=== PATIENT | female | born 1975 | race Two or more races ===

== ENCOUNTER 2021-12-23 11:30 | Outpatient (CLI) | payer MEDICARE, OTHER | END 2021-12-23 23:59 | disposition home or self-care (01) | LOC: LAB 11:30 | PROVIDERS: ATTEND Surgery | DX: Z01.812 Encounter for preprocedural laboratory examination (principal); Z20.822 Contact with and (suspected) exposure to COVID-19 | CPT/HCPCS: U0003; C9803 ==

== ENCOUNTER 2021-12-29 11:01 | Inpatient (IN) | payer MEDICARE, OTHER ==
[2021-12-29] VITALS (9 sets, daily range): BP systolic 106–144; BP diastolic 53–85
[~2021-12-29] VITALS: Ht 154.9 cm; Wt 98.4 kg
[~2021-12-29 11:01] MED LIST: ANESTHESIA TRAY IN PYXIS 1 EA TRAY MC ONE; BUPIVACAINE 0.25% 75 MG/30 ML VIAL ONE; LIDOCAINE MPF 1%-EPI 1:200,000 30 ML VIAL IJ ONE
--- NOTE | 2021-12-29 11:43 | NUR ---
MS RN ADMITTING NOTES PT ADMITTED TO UNIT AT 1125 AMBULATORY ACCOMPANIED BY ADMITTING STAFF. PT IS A/O X4. ABLE TO MAKE NEEDS KNOWN. ORIENTED TO STAFF AND UNIT. PT ON ROOM AIR, BREATHING EVEN AND UNLABORED. V/S TAKEN AND RECORDED. CONSENTS FOR GASTRECTOMY BY GABINO ZAMBRANO SIGNED BY PT. IV ACCESS INSERTED TO RFA G#22 AND SECURED WITH TAPE. URINE SPECIMEN FOR HCG COLLECTED. SAFETY MEASURES INITIATED: BED PLACED IN LOWEST LOCKED POSITION, SR UP X2 AND CALL LIGHT W/I EASY REACH OF PT. WILL CONTINUE TO MONITOR PT.
--- NOTE | 2021-12-29 12:38 | NUR ---
RN NOTES PT PICKED-UP VIA HER BED TO SURGERY BY Alena MILLS
[2021-12-29] MEDS ORDERED: FENTANYL PF 250MCG/5ML AMPUL ONE (13:11)
[2021-12-29] MEDS ORDERED: ROCURONIUM BROMIDE 50 MG/5 ML ONE (13:11)
[2021-12-29] MEDS ORDERED: HEPARIN SODIUM, PORCINE 5000 UNITS/1 ML VIAL ONE (14:18)
[2021-12-29] MEDS ORDERED: GABA-532 PO (15:10)
[2021-12-29] MEDS ORDERED: SIMV80TA90 PO (15:10)
[2021-12-29] MEDS ORDERED: CYCL5TAB PO (15:10)
[2021-12-29] MEDS ORDERED: OMEG1CAP55 PO (15:10)
[2021-12-29] MEDS ORDERED: [UNRECOGNIZED DRUG - OTHER] PO (15:10)
[2021-12-29] MEDS ORDERED: MINO100T PO (15:10)
[2021-12-29] MEDS ORDERED: TOPI50TA24 PO (15:10)
[2021-12-29] MEDS ORDERED: ONDANSETRON HCL/PF 4 MG/2 ML VIAL IV PRN (15:30)
[2021-12-29] MEDS ORDERED: HEMOSTATIC MATRIX 8 ML 1 EACH PAD MC ONE (15:40)
[2021-12-29] MEDS ORDERED: SCOPOLAMINE PATCH 1 MG/72HR TD ONE (16:28)
[2021-12-29] MEDS ORDERED: HYDROCODONE/APAP 5/325MG TABLET PO PRN (16:30)
[2021-12-29] MEDS ORDERED: FENTANYL PF 100MCG/2ML AMPUL IV PRN (16:30)
[2021-12-29] MEDS ORDERED: ACETAMINOPHEN ES 500 MG TABLET PO PRN (16:30)
[2021-12-29] MEDS ORDERED: FENTANYL PF 100MCG/2ML AMPUL ONE (16:41)
--- NOTE | 2021-12-29 17:27 | NUR ---
RN NOTES PT RETURNED TO UNIT AT 1715 ACCOMPANIED BY OMagdalene MARTINEZ S/P LAP SLEEVE GASTRECTOMY, LAP HIATAL HENIORRHAPY, LAP LIVER WEDGE RESECTION BIOPSY AND ENDOSCOPY BY GABINO ZAMBRANO. PT IS DROWSY BUT ABLE TO VERBALIZED NEEDS. PT ON ROOM AIR, TOLERATING WELL WITH NO SOB NOTED. SCD'S IN PLACE TO BOTH BLE. PT WITH 6 SMALL SURGICAL INCISIONS ON ABDOMEN ( 2 ON LEFT LOWER. 2 ON RIGHT LOWER AND 2 ON MID LOWER ABDOMEN), TAPES IN PLACE WITH NO ACTIVE BLEEDING AT SITES NOTED. POST OP ORDERS RECEIVED AND WILL CARRY OUT. WILL CONTINUE TO MONITOR PT.
--- NOTE | 2021-12-29 17:45 | NUR ---
RN NOTES ICE PACKS APPLIED TO ABDOMEN. INCENTIVE SPIROMETER PROVIDED AND INSTRUCTED PT ON HOW TO USE IT.
[2021-12-29] MEDS: METOCLOPRAMIDE HCL 10 MG/2 ML VIAL IV SCH (17:48)
--- NOTE | 2021-12-29 17:54 | NUR ---
RN NOTES PT C/O ABDOMINAL PAIN, 7/10 SCALE. PRN NORCO 5/325 TAB GIVEN AT 1748 WITH SIP OF WATER. WILL CONTINUE TO MONITOR AND REASSESS PT.
--- NOTE | 2021-12-29 18:49 | NUR ---
MS RN CLOSING NOTES PT IN BED ASLEEP AT THIS TIME, EASILY AWAKENS. HOB ELEVATED. A/O X4. ABLE TO MAKE NEEDS KNOWN. ON ROOM AIR, BREATHING EVEN AND UNLABORED. IV ACCESS ON RFA G# 22 INTACT AND PATENT. PT WITH ICE PACKS IN PLACE ON ABDOMEN. ALL NEEDS AND CARE PROVIDED WELL. SAFETY MEASURES MAINTAINED: BED PLACED IN LOWEST LOCKED POSITION, SR UP X2 AND CALL LIGHT W/I EASY REACH OF PT. WILL ENDORSE PLAN OF CARE TO PAVING STONE INSTALLER NURSE
[2021-12-29 19:26] LABS: CALCIUM, SERUM 7.9 mg/dL (8.5-10.1); CREATININE 0.8 mg/dL (0.6-1.3)
--- NOTE | 2021-12-29 19:45 | NUR ---
MS RN OPENING NOTES RECEIVED PATIENT RESTING IN BED; AWAKE, ALERT AND ORIENTED X4. VERBALLY RESPONSIVE. ON ROOM AIR; TOLERATING WELL. RESPIRATION EVEN AND NONLABORED. NO S/SX OF RESPIRATORY DISTRESS. DENIES ANY PAIN OR DISCOMFORT AT THIS TIME. WITH IV ACCESS ON RIGHT FOREARM 22G AND RIGHT WRIST; BOTH ARE PATENT, INTACT AND SALINE LOCKED. NO INFILTRATION NOTED. ABLE TO MAKE NEEDS KNOWN. FALL AND SAFETY PRECAUTIONS IMPLEMENTED: HEAD OF BED ELEVATED, CALL LIGHT AND TABLE WITHIN EASY REACH, SIDE RAILS UP X2, BED IN LOWEST LOCKED POSITION. WILL CONTINUE PLAN OF CARE
[2021-12-29 20:04] LABS: BASOPHILS % (AUTO) 0.1 % (0.0-2.0); EOSINOPHILS % (AUTO) 0.1 % (0.0-6.0); HEMATOCRIT 38 % (33-45); HEMOGLOBIN 12.1 g/dL (11.5-14.8); LYMPHOCYTES # (AUTO) 0.7 K/uL (0.8-4.8); LYMPHOCYTES % (AUTO) 4.7 % (20.0-44.0); MEAN CORPUSCULAR HGB CONC 32 g/dl (31.0-36.0); MEAN CORPUSCULAR VOLUME 80 fL (82-100); MONOCYTES # (AUTO) 0.2 K/uL (0.1-1.30); MONOCYTES % (AUTO) 1.2 % (2.0-12.0); NEUTROPHILS # (AUTO) 13.2 K/uL (1.8-8.9); NEUTROPHILS % (AUTO) 93.9 % (43.0-81.0); PLATELET COUNT (AUTO) 210 K/uL (150-450); RED BLOOD CELL COUNT(AUTO) 4.76 MIL/uL (4.0-5.2)
[2021-12-29] MEDS: POTASSIUM CL. PREMIX PERIPHER. 50 ML IV SCH ×2 (20:44→22:52)
[2021-12-29] MEDS ORDERED: ENSURE CLEAR 237 ML LIQUID (MIX BERRY) PO ONE (21:00)
[2021-12-29] MEDS: HEPARIN SODIUM, PORCINE 5000 UNITS/1 ML VIAL SQ SCH (22:17)
[2021-12-30] MEDS: POTASSIUM CL. PREMIX PERIPHER. 50 ML IV SCH ×4 (00:16→03:26)
[2021-12-30] MEDS: METOCLOPRAMIDE HCL 10 MG/2 ML VIAL IV SCH ×3 (00:19→12:09)
[2021-12-30] MEDS: KETOROLAC TROMETHAMINE INJ 30 MG/ML VIAL IV PRN ×2 (05:11→12:21)
[2021-12-30] MEDS: HEPARIN SODIUM, PORCINE 5000 UNITS/1 ML VIAL SQ SCH ×2 (05:47→12:09)
[2021-12-30 06:20] LABS: BASOPHILS % (AUTO) 0.3 % (0.0-2.0); HEMATOCRIT 38 % (33-45); HEMOGLOBIN 12.1 g/dL (11.5-14.8); LYMPHOCYTES # (AUTO) 0.8 K/uL (0.8-4.8); LYMPHOCYTES % (AUTO) 6.1 % (20.0-44.0); MEAN CORPUSCULAR HGB CONC 32 g/dl (31.0-36.0); MEAN CORPUSCULAR VOLUME 80 fL (82-100); MONOCYTES # (AUTO) 0.6 K/uL (0.1-1.30); MONOCYTES % (AUTO) 4.8 % (2.0-12.0); NEUTROPHILS # (AUTO) 11.1 K/uL (1.8-8.9); NEUTROPHILS % (AUTO) 88.8 % (43.0-81.0); PLATELET COUNT (AUTO) 245 K/uL (150-450); RED BLOOD CELL COUNT(AUTO) 4.69 MIL/uL (4.0-5.2); WHITE BLOOD COUNT (AUTO) 12.5 K/uL (4.3-11.0)
[2021-12-30 06:53] LABS: CALCIUM, SERUM 7.9 mg/dL (8.5-10.1); CREATININE 0.8 mg/dL (0.6-1.3); POTASSIUM 3.7 mmol/L (3.5-5.1)
--- NOTE | 2021-12-30 06:55 | NUR ---
MS RN CLOSING NOTES PATIENT LAYING COMFORTABLY IN BED; AWAKE, A/O X4. VERBALLY RESPONSIVE. STABLE ON ROOM AIR. BREATHING EVEN AND NONLABORED. NO S/SX OF RESPIRATORY DISTRESS. NO C/O PAIN OR DISCOMFORT AT THIS TIME. WITH IV ACCESS ON RFA 22G AND RIGHT WRIST; BOTH ARE PATENT, INTACT AND SALINE LOCKED. NO INFILTRATION NOTED. ALL NEEDS MET. FALL AND SAFETY PRECAUTIONS IMPLEMENTED: HEAD OF BED ELEVATED, CALL LIGHT AND TABLE WITHIN EASY REACH, SIDE RAILS UP X2, BED IN LOWEST LOCKED POSITION. ENDORSED TO MORNING SHIFT FOR LANEY.
--- NOTE | 2021-12-30 07:30 | NUR ---
MS RN OPENING NOTES RECEIVED PATIENT ON BED AWAKE AND A/O X4. ON ROOM AIR TOLERATING WELL. NO SOB NOTED. NOT IN DISTRESS. WITH NO COMPLAINTS OF PAIN OR DISCOMFORT AT THIS TIME. WITH IV ACCESS AT THE RIGHT FOREARM G22 SALINE LOCKED, PATENT AND INTACT. NPO POST MIDNIGHT ENDORSED BY WEB SEARCH EVALUATOR NURSE FOR XR UPPER ABDOMEN UPPER GI WITH GASTROGRAFFIN. SAFETY MEASURES IN PLACED. CALL LIGHT WITHIN REACH. BED ON LOWEST LOCKED POSITION, SIDE RAILS UP X2. WILL CONTINUE TO MONITOR.
[2021-12-30 08:13] VITALS: BP 119/65
[2021-12-30] MEDS ORDERED: PANTOPRAZOLE 40 MG/PACK PACK PO SCH (09:00)
[2021-12-30] MEDS ORDERED: DIATR MEGLU/DIATRIZOATE SODIUM 120 ML BOTTLE (GASTROGRAPHIN) ONE (15:28)
[2021-12-30 15:55] VITALS: BP 119/60
--- NOTE | 2021-12-30 17:25 | NUR ---
MS ACID PURIFIER NOTES PATIENT WAS SEEN BY [employer] VICE PRESIDENT PETE AND ORDERED PATIENT FOR DISCHARGE AFTER XR ABDOMEN WITH GASTROGRAFFIN IF RESULT IS NEGATIVE. XR DONE WITH NEGATIVE RESULT. FOR DISCHARGE TO HOME. DISCHARGE INSTRUCTION AND EDUCATION PROVIDED TO PATIENT AND EXPLAINED MEDICATIONS AND PRESCRIPTIONS. PATIENT VERBALIZED UNDERSTANDING. DISCHARGE FORM AND BELONGINGS LIST FORM SIGNED BY PATIENT. ALL BELONGINGS ACCOUNTED FOR. NAME WRIST BAND AND IV LINE REMOVED. ACCOMPANIED PATIENT TO THE LOBBY VIA WHEELCHAIR IN STABLE CONDITION AND LEFT WITH VIA PRIVATE CAR. MD AND CHARGE NURSE ARE AWARE OF THE DISCHARGE.
--- NOTE | 2021-12-30 19:00 | NUR ---
SHOT PEENING OPERATOR NOTES PATIENT WAS SEEN BY DR PAGE AND ORDERED PATIENT TO HOME. DISCHARGE INSTRUCTION AND EDUCATION PROVIDED TO PATIENT AND EXPLAINED MEDICATIONS AND PRESCRIPTIONS. PATIENT VERBALIZED UNDERSTANDING. DISCHARGE FORM AND BELONGINGS LIST FORM SIGNED BY PATIENT. ALL BELONGINGS ACCOUNTED FOR. NAME WRIST BAND AND IV LINE REMOVED. ACCOMPANIED PATIENT TO THE [facility] IN STABLE CONDITION AND LEFT WITH VIA PRIVATE CAR. MD AND CHARGE NURSE ARE AWARE OF THE DISCHARGE. Addendum: 12/30/21 at 1943 by MARCOS BOWLES RN ERROR. DOCUMENTED ON WRONG PATIENT.
== END 2021-12-30 17:38 | disposition home or self-care (01) | DRG 621 ==
LOC: DS 11:01 → MED 11:02
PROVIDERS: ADMIT Nurse Practitioner Acute Care; ATTEND Internal Medicine
PROC: 0DB64Z3 Excision of Stomach, Percutaneous Endoscopic Approach, Vertical (ICD-10-PCS; principal; 2021-12-29)
PROC: 0BQT4ZZ Repair Diaphragm, Percutaneous Endoscopic Approach (ICD-10-PCS; 2021-12-29)
PROC: 0FB03ZX Excision of Liver, Percutaneous Approach, Diagnostic (ICD-10-PCS; 2021-12-29)
DX: E66.01 Morbid (severe) obesity due to excess calories (principal); E78.5 Hyperlipidemia, unspecified; K44.9 Diaphragmatic hernia without obstruction or gangrene; Z68.41 Body mass index [BMI] 40.0-44.9, adult; K76.0 Fatty (change of) liver, not elsewhere classified; E87.6 Hypokalemia; D72.829 Elevated white blood cell count, unspecified
CPT/HCPCS: 36415; 74246-TC; 80048-TC; 83735-TC; 84703-TC; 85025-TC; 97112-TC; 97116-TC; 97530-TC; G0378; J0330; J0690; J1100; J1644; J1885; J2405; J2704; J2765; J3010; J3480; J3490; J7030; J7040; Q9963